=== PATIENT | female | born 1965 | race Caucasian/White ===

== ENCOUNTER 2019-08-23 13:14 | Emergency (ER) | payer BC ==
--- NOTE | 2019-08-23 15:01 | EDM.PDOC ---
ED HPI GENERAL MEDICAL PROBLEM - General Chief Complaint: Lower Extremity Injury/Pain Stated Complaint: RT KNEE INJURY Time Seen by Provider: 08/23/19 13:36 Source of Information: Reports: Patient, RN Notes Reviewed History Limitations: Reports: No Limitations - History of Present Illness INITIAL COMMENTS - FREE TEXT/NARRATIVE: Patient is a 54-year-old female who presents to the ED for evaluation of a right knee injury. She notes that she was in her house last night, she is carrying a box and forgot that she had a card table out, ended up tripping over the card table, and she fell directly onto the right knee. She noted pain into the knee right away last night, she try to take some Tylenol last night, however she relates she did not get much sleep due to the pain. She appreciates some mild swelling noted today, and feels better when she doesn't put weight on the extremity, she presented to the ER on crutches today. She took 3 tablets of 650 mg Tylenol at 8 AM this morning. She denies any numbness or tingling distal to the injury. She notes that she has a prior injury to this knee, she states roughly 3 years ago she was in her yard, and her boots became trapped in the mud, she went to move and the boots did not move in the mud, she ended up twisting this knee. She was not evaluated for that injury at that time. Treatments FELT CARBONIZER: Reports: Other (see below) Other Treatments FELT CARBONIZER: tylenol Right Knee Pain Score (Numeric/FACES): 10 - Related Data Allergies Allergy/AdvReac Type Severity Reaction Status Date / Time No Known Allergies Allergy Verified 12/16/18 13:40 Home Meds: Home Meds Acetaminophen/oxyCODONE [Percocet 325-5 MG] 1 each PO Q6H PRN #10 tab 08/23/19 [ Rx] Cyanocobalamin (Vitamin B-12) [B-12] 5,000 mg PO DAILY 08/23/19 [History] Lisinopril 10 mg PO DAILY 08/23/19 [History] Rosuvastatin [Crestor] 5 mg PO DAILY 08/23/19 [History] Ubidecarenone [Coq10] 50 mg PO DAILY 08/23/19 [History] Venlafaxine [Effexor] 25 mg PO DAILY 08/23/19 [History] Past Medical History Cardiovascular History: Reports: Hypertension - Past Surgical History GI Surgical History: Reports: Cholecystectomy Female Surgical History: Reports: Hysterectomy Social & Family History - Tobacco Use Smoking Status *Q: Never Smoker - Caffeine Use Caffeine Use: Reports: Coffee, Soda, Tea - Recreational Drug Use Recreational Drug Use: No Review of Systems - Review of Systems Review Of Systems: See Below Constitutional: Denies: Chills, Fever Eyes: Reports: No Symptoms Ears: Reports: No Symptoms Nose: Reports: No Symptoms Mouth/Throat: Reports: No Symptoms Respiratory: Reports: No Symptoms Cardiovascular: Reports: No Symptoms GI/Abdominal: Reports: No Symptoms Genitourinary: Reports: No Symptoms Musculoskeletal: Reports: Joint Pain (R knee), Joint Swelling (R knee) Skin: Reports: Other. Denies: Bruising Neurological: Reports: Difficulty Walking (d/t pin). Denies: Numbness, Tingling Psychiatric: Reports: No Symptoms ED EXAM, GENERAL - Physical Exam Exam: See Below Exam Limited By: No Limitations General Appearance: Alert, WD/WN, No Apparent Distress Eye Exam: Bilateral Eye: EOMI, Normal Inspection, PERRL Respiratory/Chest: No Respiratory Distress, Lungs Clear, Normal Breath Sounds, No Accessory Muscle Use, Chest Non-Tender Cardiovascular: Normal Peripheral Pulses, Regular Rate, Rhythm, No Murmur Peripheral Pulses: 3+: Dorsalis Pedis (L), Dorsalis Pedis (R) Extremities: Normal Inspection, Normal Capillary Refill, Joint Swelling (R knee) , Limited Range of Motion (of R leg d/t pain) Neurological: Alert, Oriented, Normal Cognition, No Motor/Sensory Deficits Psychiatric: Normal Affect, Normal Mood Skin Exam: Warm, Dry, Intact, Normal Color, No Rash Course - Vital Signs Last Recorded V/S: Last Vital Signs Temp 98.4 F 08/23/19 13:43 Pulse 74 08/23/19 13:43 Resp 20 08/23/19 13:43 BP 126/63 08/23/19 13:43 Pulse Ox 96 08/23/19 13:43 - Orders/Labs/Meds Orders: Active Orders 24 hr Category Date Time Status Knee 3V Rt [CR] Stat Exams 08/23/19 13:45 Ordered DME for Discharge [COMM] Routine Oth 08/23/19 14:50 Ordered - Re-Assessments/Exams Free Text/Narrative Re-Assessment/Exam: 08/23/19 15:06 Patient presents to the ED for the evaluation of a Right knee injury. I did obtain x-rays, and these did not demonstrate any sort of bony fracture or abnormality. Official radiology read is pending, x-rays reviewed by myself and Dr. Reece. Due to the patient's pain level, I have provided her with some tablets of Percocet for night time use. Will get the patient a knee immobilizing brace and have her follow up in a week-10 days time if the injury is not improving. Departure - Departure Time of Disposition: 14:57 Disposition: Home, Self-Care 01 Condition: Fair Clinical Impression: Right knee pain Qualifiers: Chronicity: acute Qualified Code(s): M25.561 - Pain in right knee - Discharge Information *PRESCRIPTION DRUG MONITORING PROGRAM REVIEWED*: No *COPY OF PRESCRIPTION DRUG MONITORING REPORT IN PATIENT STEPHEN: No Prescriptions: Acetaminophen/oxyCODONE [Percocet 325-5 MG] 1 each PO Q6H PRN #10 tab PRN Reason: Pain Instructions: How to Use a Knee Immobilizer, [id number], Joint Pain, Easy-to- Read Referrals: Zoey Manzo, SANDWICH MACHINE OPERATOR [Primary Care Provider] - Forms: ED Department Discharge, ED Return to Work/School Form Additional Instructions: You have been evaluated in the ED for your right knee injury. Your x-ray demonstrated no acute fracture or bony abnormality. Please use ice as tolerated to the affected area. Please try to elevate the affected area to relieve swelling. You may take Tylenol 500 mg or ibuprofen 600mg q6 hrs for pain relief. Please do so until you have a tolerable level of pain with activity. Do not exceed 4000mg Tylenol or 3200mg ibuprofen in a 24 hour time period. Were given a prescription for oxycodone/acetaminophen, 5/325, please take one tablet every 6 hours as needed for pain not relieved by Tylenol or ibuprofen alone. You may take this medication at night only if you feel it is too sedating during the day. Your prescription was electronically sent to the [facility] pharmacy located near [facility], this pharmacy is open from 12 to 4 PM today, you'll need to go there to obtain your prescriptions during this timeframe. Please return to ED if your symptoms should change or worsen. - My Orders Last 24 Hours: My Active Orders 08/23/19 13:45 Knee 3V Rt [CR] Stat 08/23/19 14:50 DME for Discharge [COMM] Routine - Assessment/Plan Last 24 Hours: My Active Orders 08/23/19 13:45 Knee 3V Rt [CR] Stat 08/23/19 14:50 DME for Discharge [COMM] Routine
--- NOTE | 2019-08-24 08:00 | CR ---
Right knee: Three views of the right knee were obtained. Comparison: No prior knee exam is available. Very slight osteophytes are noted off the medial and lateral tibia as well as off the medial distal femur. Joint spaces are maintained. There is a small joint effusion being seen. Slight osteophytes are noted off the patellar articular margin as well as small bony exostosis at the attachment of the quadriceps tendon to the patella compatible with stress reaction. Impression: 1. Small joint effusion. 2. Mild degenerative change. 3. No acute bony abnormality is identified. Diagnostic code #2
== END 2019-08-23 15:22 | disposition home or self-care (01) ==
LOC: JD.ED 13:14
DX: M25.561 Pain in right knee (principal); I10 Essential (primary) hypertension; Z79.899 Other long term (current) drug therapy; W01.0XXA Fall on same level from slipping, tripping and stumbling without subsequent striking against object, initial encounter; Y93.89 Activity, other specified
CPT/HCPCS: 73562-26-RT; 73562-RT; 99283-25

== ENCOUNTER 2020-05-22 14:39 | Emergency (ER) | payer BC ==
[2020-05-22] MEDS ORDERED: Amoxicillin/Clavulanate K 875-125 MG Tab PO ONE (15:32)
--- NOTE | 2020-05-22 15:35 | EDM.PDOC ---
ED HPI GENERAL MEDICAL PROBLEM - General Chief Complaint: Bite:Animal, Insect Stated Complaint: CAT BITE Time Seen by Provider: 05/22/20 15:32 Source of Information: Reports: Patient History Limitations: Reports: No Limitations - History of Present Illness INITIAL COMMENTS - FREE TEXT/NARRATIVE: The patient is an unfortunate 55-year-old obese female who presents emergency department today with complaint of cat bite to her right lower extremity. Patient reports that she has a stray cat that they take care of she reports that they feed the cat and keep it in a cage and then let it out of the cage and it normally rubs up against her leg when she turned to walk away from the cat the cat bit her on her right lower extremity. Patient has a puncture wound with 3 superficial abrasions and mild erythema around the puncture wound no the cats immunization status but feel like they can capture the cat and take the cat to the vet - Related Data Allergies Allergy/AdvReac Type Severity Reaction Status Date / Time No Known Allergies Allergy Verified 12/16/18 13:40 Home Meds: Home Meds Acetaminophen/oxyCODONE [Percocet 325-5 MG] 1 each PO Q6H PRN #10 tab 08/23/19 [Rx] Cyanocobalamin (Vitamin B-12) [B-12] 5,000 mg PO DAILY 08/23/19 [History] Lisinopril 10 mg PO DAILY 08/23/19 [History] Rosuvastatin [Crestor] 5 mg PO DAILY 08/23/19 [History] Ubidecarenone [Coq10] 50 mg PO DAILY 08/23/19 [History] Venlafaxine [Effexor] 25 mg PO DAILY 08/23/19 [History] Amoxicillin/Clavulanate K [Augmentin 875-125 MG] 1 tab PO BID #14 tablet 05/22/20 [Rx] Past Medical History Cardiovascular History: Reports: Hypertension - Past Surgical History GI Surgical History: Reports: Cholecystectomy Female Surgical History: Reports: Hysterectomy Social & Family History - Caffeine Use Caffeine Use: Reports: Coffee, Soda, Tea ED ROS GENERAL - Review of Systems Review Of Systems: See Below Constitutional: Denies: Fever, Chills Skin: Reports: Other (puncture wound and superficial lacerations) ED EXAM, ANIMAL BITE - Physical Exam Exam: See Below Exam Limited By: No Limitations General Appearance: Alert, Mild Distress, Obese Throat/Mouth: Normal Inspection, Normal Lips, Normal Teeth, Normal Gums, Normal Oropharynx, Normal Voice, No Airway Compromise Neck: Normal Inspection, Supple, Non-Tender, Full Range of Motion Respiratory/Chest: No Respiratory Distress, Lungs Clear, Normal Breath Sounds, No Accessory Muscle Use, Chest Non-Tender Cardiovascular: Normal Peripheral Pulses, Regular Rate, Rhythm, No Edema, No Gallop, No JVD, No Murmur, No Rub GI/Abdominal: Normal Bowel Sounds, Soft, Non-Tender, No Organomegaly, No Distention, No Abnormal Bruit, No Mass Extremities: Other (Puncture wound right lower extremity with mild surrounding erythema approximately 1 cm in diameter and 2 superficial lacerations anywhere in shape approximately 8 cm long each) Skin Exam: Normal Color, Warm/Dry Course - Orders/Labs/Meds Orders: Had lengthy discussion with patient and family and they will capture the cat and take the cat into the vet on Saturday, if they are unable to capture the cat they will return here or rabies IgG and vaccine Meds: Medications Discontinued Medications Generic Name Dose Route Start Last Admin Trade Name Roel PRN Reason Stop Dose Admin Amoxicillin/Clavulanate Potassium 1 tab 05/22/20 15:32 Augmentin 875 Mg/125 Mg PO 05/22/20 15:33 ONETIME ONE Departure - Departure Time of Disposition: 15:35 Disposition: Home, Self-Care 01 Condition: Good Clinical Impression: Bitten by cat, initial encounter - Discharge Information Prescriptions: Amoxicillin/Clavulanate K [Augmentin 875-125 MG] 1 tab PO BID #14 tablet Referrals: Zoey Manzo STRUCTURAL IRONWORKER [Primary Care Provider] - Forms: ED Department Discharge Additional Instructions: Home, rest, keep wound clean and dry, clean wound daily apply Neosporin and bandage, capture the cat and take the cat to the vet for testing on Saturday, return as needed for any worsening condition
== END 2020-05-22 16:10 | disposition home or self-care (01) ==
LOC: JD.ED 14:39
DX: S81.851A Open bite, right lower leg, initial encounter (principal); I10 Essential (primary) hypertension; E66.9 Obesity, unspecified; Z79.899 Other long term (current) drug therapy; W55.01XA Bitten by cat, initial encounter
CPT/HCPCS: 99283; A9270

== ENCOUNTER 2023-07-15 08:39 | Day surgery (SDC) | payer BC ==
[~2023-07-15 08:39] MED LIST: Acetaminophen 325 MG Tab PO SCH; Lactated Ringers 1,000 ML IV SCH; Pregabalin 25 MG Cap PO SCH; Sodium Chloride 0.9% 10 ML Syringe FLUSH PRN; Sodium Chloride 0.9% 10 ML Syringe FLUSH SCH; oxyCODONE ER 10 MG TAB.ER PO SCH
[2023-07-15] MEDS ORDERED: Dexmedetomidine 200 MCG/2 ML SDV ONE (09:16)
[2023-07-15] MEDS ORDERED: fentaNYL 100 MCG/2 ML SDV ONE (09:16)
[2023-07-15] MEDS ORDERED: Propofol 200 MG/20 ML SDV ONE (09:17)
[2023-07-15] MEDS ORDERED: Midazolam 1 MG/ML 2 ML SDV ONE (09:17)
[2023-07-15] MEDS ORDERED: ceFAZolin 2 GM Vial ONE (09:17)
[2023-07-15] MEDS ORDERED: Ropivacaine 0.5% 5 MG/ML 30 ML SDV ONE (09:24)
[2023-07-15] MEDS ORDERED: Dexamethasone 4 MG/ML 5 ML MDV ONE (09:28)
[2023-07-15] MEDS ORDERED: Phenylephrine 1% 10 MG/ML SDV ONE (10:15)
[2023-07-15] MEDS: Tranexamic Acid 1,000 MG/10 ML Vial ONE ×2 (10:50→11:18)
[2023-07-15] MEDS ORDERED: HYDROmorphone 0.5 MG/0.5 ML Syringe IVPUSH PRN (10:50)
[2023-07-15] MEDS: Morphine 8 MG, EPINEPHrine 0.3 MG, Cefuroxime 750 MG, Ketorolac 30 MG, Sodium Chloride ... PRN ×10 (10:50→11:11)
[2023-07-15] MEDS ORDERED: fentaNYL 100 MCG/2 ML SDV IVPUSH PRN (10:50)
[2023-07-15] MEDS: Vancomycin 1 GM SDV ONE ×2 (10:51→11:18)
[2023-07-15] MEDS ORDERED: Lactated Ringers 1,000 ML ONE (10:59)
[2023-07-15] MEDS ORDERED: EPINEPHrine 1 MG/ML SDV ONE (11:55)
[2023-07-15] MEDS ORDERED: oxyCODONE 5 MG Tab PO ONE (12:22)
== END 2023-07-15 16:11 | disposition home or self-care (01) ==
LOC: JD.SDS 08:39
PROVIDERS: ATTEND Orthopaedic Surgery
DX: M17.11 Unilateral primary osteoarthritis, right knee (principal); G89.29 Other chronic pain; F41.9 Anxiety disorder, unspecified; E78.00 Pure hypercholesterolemia, unspecified; G43.909 Migraine, unspecified, not intractable, without status migrainosus; E11.9 Type 2 diabetes mellitus without complications; I10 Essential (primary) hypertension; E66.9 Obesity, unspecified; Z79.84 Long term (current) use of oral hypoglycemic drugs; Z79.899 Other long term (current) drug therapy; Z68.41 Body mass index [BMI] 40.0-44.9, adult; Z82.61 Family history of arthritis
CPT/HCPCS: 0055T; 27447; 64447; 73560; 97110; 97116; 97161; A9270; C1713; C1776; J0171; J0690; J0697; J1100; J1885; J2250; J2270; J2370; J2704; J2795; J3010; J3370; J7030; J7120; 01402; J3490

== ENCOUNTER 2024-12-19 16:29 | Emergency (ER) | payer BC ==
[2024-12-19] MEDS: Diphtheria,Pertussis(Acell),Tetanus Vaccine 0.5 ML Syringe IM ONE (17:15)
[2024-12-19] MEDS: Acetaminophen 325 MG Tab PO ONE (17:17)
[2024-12-19] MEDS: Lidocaine 1% 10 ML MDV ONE (18:06)
[2024-12-19] MEDS: Lidocaine 1% 50 ML MDV SUBCUT ONE (18:08)
[2024-12-19] MEDS: Lidocaine 1% 10 ML MDV INJECT ONE (18:08)
[2024-12-19] MEDS: Cephalexin 500 MG Cap PO ONE (20:10)
== END 2024-12-19 20:37 | disposition home or self-care (01) ==
LOC: JD.ED 16:29
DX: S02.2XXA Fracture of nasal bones, initial encounter for closed fracture (principal); S01.81XA Laceration without foreign body of other part of head, initial encounter; I10 Essential (primary) hypertension; E78.00 Pure hypercholesterolemia, unspecified; E11.9 Type 2 diabetes mellitus without complications; Z90.49 Acquired absence of other specified parts of digestive tract; Z88.8 Allergy status to other drugs, medicaments and biological substances; Z79.899 Other long term (current) drug therapy; Z79.84 Long term (current) use of oral hypoglycemic drugs; Z90.710 Acquired absence of both cervix and uterus; Z23 Encounter for immunization; W01.198A Fall on same level from slipping, tripping and stumbling with subsequent striking against other object, initial encounter; Y93.89 Activity, other specified
CPT/HCPCS: 12015; 70450; 72125; 73130; 90471; 90715; 99284; A9270; J3490